=== PATIENT | male | born 1995 | race African-American/Black ===

== ENCOUNTER 2017-04-24 12:49 | Emergency (ER) | payer OTHER ==
[~2017-04-24] VITALS: Ht 177.8 cm; Wt 61.5 kg
[~2017-04-24 12:49] MED LIST: Z.0.NO CURRENT MEDS
[2017-04-24] MEDS ORDERED: IOHEXOL 350 MG/ML 10 ML VIAL (for RAD DIAG) IVCONTRAST ONE (12:50)
[2017-04-24 12:52] VITALS: BP 146/65; PULSE 102; RESP 16; TEMP 98.4; O2SAT 99
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
[2017-04-24] MEDS ORDERED: IBUP-232 PO (16:09)
[2017-04-24] MEDS ORDERED: KETOROLAC TROMETHAMINE 30 MG/ML (IVP) VIAL IV PUSH ONE (16:15)
[2017-04-24 16:27] VITALS: BP 123/78
== END 2017-04-24 16:42 | disposition home or self-care (01) ==
LOC: NEPD 12:49
DX: S06.0X0A Concussion without loss of consciousness, initial encounter (principal); S13.4XXA Sprain of ligaments of cervical spine, initial encounter; R51 Headache; M54.9 Dorsalgia, unspecified; V49.59XA Passenger injured in collision with other motor vehicles in traffic accident, initial encounter
CPT/HCPCS: 70450; 71260; 72125; 74177; 96374; 99285; J1885; Q9967